=== PATIENT | female | born 1970 | race Caucasian/White ===

== ENCOUNTER → 2016-11-15 | Outpatient (CLI) | payer BC ==
[~2016-11-15] MED LIST: ASPI81TA28 PO; HYDR25TA5 PO; LISI-725 PO; MTR600X PO; OXYC-57 PO
--- NOTE | 2016-11-16 13:27 | MAMMOGRAPHY REPORT ---
BILATERAL DIGITAL SCREENING MAMMOGRAM TOMOSYNTHESIS WITH CAD: 11/15/2016 CLINICAL HISTORY: Routine screening. Patient has no complaints. TECHNIQUE: Breast tomosynthesis in addition to standard 2D mammography was performed. Current study was also evaluated with a Computer Aided Detection (CAD) system. COMPARISON: Comparison is made to exam dated: 08/10/2010 mammogram - [facility]. BREAST COMPOSITION: There are scattered areas of fibroglandular density in both breasts. FINDINGS: There are regionally distributed calcifications within the left upper outer quadrant that appear increased compared to the prior exam. Additionally, there are clusters of calcifications in t he right upper outer quadrant posteriorly which are not clearly stable compared to the prior exam. R ecommend spot magnification views for further evaluation. The remainder of both breasts are stable compared to prior exams, without suspicious masses, calcific ations, or areas of architectural distortion noted. IMPRESSION: ACR BI-RADS CATEGORY 0: INCOMPLETE EVALUATION: NEED ADDITIONAL IMAGING EVALUATION Bilateral breast calcifications, for which additional imaging evaluation is recommended. The patient will be called to schedule an appointment. Approximately 10% of breast cancers are not detected with mammography. A negative mammographic report should not delay biopsy if a clinically suggestive mass is present. Hannah Huizar M.D. /:11/16/2016 07:23:16 Therapist'S Assistant: Sheridan POSEY(Wilma)(Simon)(NEAL), [facility] letter sent: Addl Imaging 0 BI-RADS Code: ACR BI-RADS Category 0: Incomplete Evaluation: Need Additional Imaging Evaluation
== END | disposition home or self-care (01) ==
LOC: C.MAMM 14:56
PROVIDERS: ATTEND Obstetrics & Gynecology
DX: Z12.31 Encounter for screening mammogram for malignant neoplasm of breast (principal); R92.1 Mammographic calcification found on diagnostic imaging of breast

== ENCOUNTER → 2016-11-23 | Outpatient (CLI) | payer BC ==
--- NOTE | 2016-11-23 13:48 | MAMMOGRAPHY REPORT ---
BILATERAL DIGITAL DIAGNOSTIC MAMMOGRAM: 11/23/2016 CLINICAL HISTORY: Callback from screening mammogram for bilateral calcifications. TECHNIQUE: Spot magnification bilateral cc and ML views were obtained. COMPARISON: Comparison is made to exams dated: 11/15/2016 mammogram and 08/10/2010 mammogram - [facility]. BREAST COMPOSITION: There are scattered areas of fibroglandular density in both breasts. FINDINGS: Spot magnification views of the left breast demonstrate multiple scattered and clustered c alcifications which are predominantly regionally distributed throughout the left upper outer quadrant , increased compared to the prior 2010 exam. The calcifications are punctate and round in morphology . Spot magnification views of the right breast demonstrate small clusters of punctate and round calc ifications within the right upper outer quadrant which are also increased compared to the 2011 exam. The calcifications in the right breast are similar morphologically to the regional left breast calci fications and are felt to be part of the same process. Given the bilateral distribution and given th e punctate/round morphology, the calcifications are probably benign and may represent sclerosing poornima osis or fibrocystic changes. The options of short interval follow-up versus biopsy were discussed wi th the patient, and at this time we will proceed to biopsy of one of the groups of calcifications in the left breast. IMPRESSION: ACR BI-RADS CATEGORY 4A: LOW SUSPICION FOR MALIGNANCY Regionally distributed scattered and clustered punctate/round calcifications throughout the left uppe r outer quadrant, as well as similar-appearing clusters of calcifications in the right upper outer qu adrant. Given the bilateral and regional distribution and given the benign-appearing morphology, the calcifications are likely benign and may represent sclerosing adenosis or fibrocystic changes. Sanches rene, given the interval increase, stereotactic biopsy is recommended for further evaluation. Recomme nd biopsy of one of the dominant clusters in the left breast. A phone call was made to the physician's office to confirm faxed results were received. The patient has been verbally notified of the results. She tentatively scheduled the biopsy before leaving the [facility]. Approximately 10% of breast cancers are not detected with mammography. A negative mammographic report should not delay biopsy if a clinically suggestive mass is present. Hannah Huizar M.D. /:11/23/2016 10:23:58 Sales Account Coordinator: Alena POSEY(Wilma)(Simon), [facility] letter sent: Abnormal 4/5 BI-RADS Code: ACR BI-RADS Category 4A: Low Suspicion For Malignancy
== END | disposition home or self-care (01) ==
LOC: C.MAMM 09:43
PROVIDERS: ATTEND Obstetrics & Gynecology
DX: R92.2 Inconclusive mammogram (principal); R92.1 Mammographic calcification found on diagnostic imaging of breast

== ENCOUNTER → 2016-11-30 | Outpatient (CLI) | payer BC ==
--- NOTE | 2016-11-30 13:06 | Discharge Instructions ---
Discharge Instructions Procedure Procedure Date: Nov 30, 2016. Reason for visit: Left Calcifications. Discharge Discharge Date: Nov 30, 2016. Discharge Diagnosis: status post breast biopsy Instructions Activity Recommendations: Additional Limitations (see below) Return to School/Work: no limitations Recommended Home Diet: No Limitations Provider Instructions: ACTIVITY RECOMMENDATIONS: * No lifting, pushing, pulling or exercising the affected side for three days. RETURN TO SCHOOL/WORK: * You may return to work/school after the procedure, but do not perform any strenuous activities for 24 to 48 hours. MEDICATIONS: * Tylenol (two 325 mg) every four to six hours if needed for mild pain (if not allergic to Tylenol). DIET: * Resume previous diet. SPECIAL CARE INSTRUCTIONS: * Keep biopsy site dry for 24 hours. May shower after 24 hours, but do not soak (bathe) incision. * May remove Tegaderm (plastic patch) tomorrow AFTER showering. * Leave the steri-strips on for one week. Allow the steri-strips to fall off by themselves. If not off after one week, you may remove them. You may place a Bandaid crosswise over the strips, if desired. * Apply ice 10 minutes on and 10 minutes off as needed. * Wear a bra at bedtime to sleep more comfortably for 2-3 days. * Your referring physician should have the results after approximately 5 to 7 business days. * Call for unusual bleeding, fever, drainage, etc or if you have any questions call during normal business hours or after hours call Dr Huizar, . FOLLOW UP VISIT: Follow-up with Referring Physician as scheduled. Allergies Coded Allergies: Penicillins (Verified Allergy, Unknown, RASH, 09/03/14) Britt Biswas Recommendations: Call your doctor if: * Temperature above 101 degrees * Pain not relieved by pain medicine ordered * There is increased drainage or redness from any incision * You have any unanswered questions or concerns. Your Doctors Instructions noted above were prepared by provider Hannah Huizar. Patient Signature Section: Patient Instructions Signature Page Neha Mendoza Patient (or Guardian) Signature/Date: I have read and understand the instructions given to me by my caregivers. Caregiver/RN/Doctor Signature/Date: The above-named patient and/or guardian has received patient instructions on this date. + Original Patient Signature Page (only) stays with chart. Please make copy for patient.
--- NOTE | 2016-11-30 15:22 | MAMMOGRAPHY REPORT ---
THIS REPORT HAS BEEN AMENDED. STEREOTACTIC GUIDED BIOPSY LEFT BREAST: 11/30/2016 CLINICAL HISTORY: Regional calcifications in the left upper outer quadrant. PATIENT CONSENT: The procedure, risks, benefits, and alternatives of stereotactic biopsy with clip pl acement were discussed with the patient, and verbal and written consent was obtained. A timeout was performed immediately prior to the procedure. PROCEDURE DESCRIPTION: With stereotactic guidance, aseptic technique, and lidocaine as a local anesth etic (1% lidocaine to anesthetize the skin and 1% lidocaine with epinephrine to anesthetize the deepe r tissues), the calcifications of concern in the left upper outer quadrant were sampled multiple time s with a 9-gauge vacuum-assisted biopsy needle ([employer]). The path of approach was lateral. The specimen radiograph demonstrates calcifications to be present in the samples. A metallic marker cli p was placed at the biopsy site. This was confirmed on postprocedure mammograms. Direct pressure wa s applied at the biopsy site and hemostasis was readily achieved. The patient tolerated the procedur e without complication. She was given wound care instructions. COMPARISON: Comparison is made to exams dated: 11/23/2016 mammogram, 11/15/2016 mammogram, 08/10/2010 m ammogram, and 07/11/1999 mammogram - [facility]. IMPRESSION: STEREOTACTIC GUIDED BIOPSY Stereotactic guided biopsy of indeterminate calcifications in the left upper outer quadrant, with cli p placement. The patient will receive pathology results from her referring provider. Hannah Huizar M.D. ah/:11/30/2016 13:11:41 Corporate Travel Expert: Elysia Dunlap, [facility] AMENDMENT: 12/06/2016 Hannah Huizar M.D. Pathology results from left breast stereotactic biopsy were reviewed on 12/06/2016. The pathology show s lobular carcinoma in situ involving sclerosing adenosis; the pathology is concordant with the imagi ng findings. Given that the calcifications are extensive and seen throughout the left upper outer qu adrant, recommend additional stereotactic biopsy of calcifications most distant from the biopsy site to determine the extent of disease. Also recommend stereotactic biopsy of similar appearing right br east calcifications. The additional recommendations were discussed with Dr. Carter's nurse on 12/06/2016.
--- NOTE | 2016-11-30 15:23 | MAMMOGRAPHY REPORT ---
UNILATERAL LEFT DIGITAL DIAGNOSTIC MAMMOGRAM: 11/30/2016 CLINICAL HISTORY: Status post left breast stereotactic biopsy. TECHNIQUE: Postprocedural Left CC and LM views were obtained. COMPARISON: Comparison is made to exams dated: 11/23/2016 mammogram, 11/15/2016 mammogram, and 08/11/19 11 mammogram - [facility]. BREAST COMPOSITION: There are scattered areas of fibroglandular density in the left breast. FINDINGS: A new dumbbell-shaped biopsy marker clip is seen at the site of the biopsied calcification s in the left upper outer quadrant. No significant postbiopsy hematoma is seen. IMPRESSION: POST PROCEDURE IMAGING FOR MARKER PLACEMENT New biopsy marker clip status post left breast stereotactic biopsy. Pathology results are pending. Approximately 10% of breast cancers are not detected with mammography. A negative mammographic report should not delay biopsy if a clinically suggestive mass is present. Hannah Huizar M.D. ah/:11/30/2016 13:27:57 Habilitation Worker: Elysia Dunlap, [facility] BI-RADS Code: Post Procedure Imaging For Marker Placement
== END | disposition home or self-care (01) ==
LOC: C.MAMM 12:19
PROVIDERS: ATTEND Obstetrics & Gynecology
DX: D05.02 Lobular carcinoma in situ of left breast (principal); R92.0 Mammographic microcalcification found on diagnostic imaging of breast; N60.22 Fibroadenosis of left breast

== ENCOUNTER → 2016-12-21 | Outpatient (CLI) | payer BC ==
--- NOTE | 2016-12-21 09:45 | Discharge Instructions ---
Discharge Instructions Procedure Procedure Date: Dec 21, 2016. Reason for visit: Bilateral Calcifications. Discharge Discharge Date: Dec 21, 2016. Discharge Diagnosis: post right and left breast stereotactic guided biopsies Instructions Activity Recommendations: Additional Limitations (see below) Return to School/Work: no limitations Recommended Home Diet: No Limitations Provider Instructions: ACTIVITY RECOMMENDATIONS: * No lifting, pushing, pulling or exercising the affected side for three days. RETURN TO SCHOOL/WORK: * You may return to work/school after the procedure, but do not perform any strenuous activities for 24 to 48 hours. MEDICATIONS: * Tylenol (two 325 mg) every four to six hours if needed for mild pain (if not allergic to Tylenol). DIET: * Resume previous diet. SPECIAL CARE INSTRUCTIONS: * Keep biopsy site dry for 24 hours. May shower after 24 hours, but do not soak (bathe) incision. * May remove Tegaderm (plastic patch) tomorrow AFTER showering. * Leave the steri-strips on for one week. Allow the steri-strips to fall off by themselves. If not off after one week, you may remove them. You may place a Bandaid crosswise over the strips, if desired. * Apply ice 10 minutes on and 10 minutes off as needed. * Wear a bra at bedtime to sleep more comfortably for 2-3 days. * Your referring physician should have the results after approximately 5 to 7 business days. * Call for unusual bleeding, fever, drainage, etc or if you have any questions call [phone] during normal business hours or after hours call Dr Tan, . FOLLOW UP VISIT: Follow-up with Referring Physician as scheduled. Allergies Coded Allergies: Penicillins (Verified Allergy, Unknown, RASH, 09/03/14) Britt Biswas Recommendations: Call your doctor if: * Temperature above 101 degrees * Pain not relieved by pain medicine ordered * There is increased drainage or redness from any incision * You have any unanswered questions or concerns. Your Doctors Instructions noted above were prepared by provider Lary Tan. Patient Signature Section: Patient Instructions Signature Page Neha Reji Patient (or Guardian) Signature/Date: I have read and understand the instructions given to me by my caregivers. Caregiver/RN/Doctor Signature/Date: The above-named patient and/or guardian has received patient instructions on this date. + Original Patient Signature Page (only) stays with chart. Please make copy for patient.
--- NOTE | 2016-12-21 12:18 | MAMMOGRAPHY REPORT ---
STEREOTACTIC GUIDED BIOPSY: 12/21/2016 CLINICAL HISTORY: Clustered microcalcifications in the upper outer posterior right breast and upper o uter posterior left breast. Patient presents for bilateral stereotactic biopsies. She has a history of recent biopsy-proven atypia in the 3:00 middle one third of the left breast. Please refer to the report from left breast stereotactic guided biopsy performed at the same time for full detail. IMPRESSION: STEREOTACTIC GUIDED BIOPSY Please refer to the report from left breast stereotactic guided biopsy performed at the same time for full detail. Lary Tan M.D. ay/:12/21/2016 09:47:45 Turning Sander Tender: Elysia POSEY(Wilma)(M), [facility]
--- NOTE | 2016-12-21 12:18 | MAMMOGRAPHY REPORT ---
THIS REPORT HAS BEEN AMENDED. STEREOTACTIC GUIDED BIOPSY LEFT BREAST: 12/21/2016 CLINICAL HISTORY: 46-year-old woman with recent proven atypia in the left breast. Patient presents f or stereotactic biopsy of another distal clustered microcalcifications on the left, and also a cluste r microcalcifications in the right breast. COMPARISON: Comparison is made to exams dated: 12/21/2016 mammogram, 11/30/2016 mammogram, 11/30/2016 s tereotactic biopsy, 11/23/2016 mammogram, 11/15/2016 mammogram, and 08/10/2010 mammogram - [facility]. PATIENT CONSENT: After explaining the risks, benefits and alternatives of the procedure to the patien t, informed consent was obtained both verbally and in writing. Specific risks include: Bleeding, inf ection, puncture of adjacent structure, pain, nontarget biopsy, sampling error, metal allergy and med ication reaction. A time out was performed in both breasts were agreed as the site of biopsy. PROCEDURE DESCRIPTION: First the left breast stereotactic guided biopsy was performed. The patient w as placed prone on the stereotactic biopsy table and the breast was placed in CC from above compressi on. A fire extinguisher installer image was obtained that demonstrated the clustered microcalcifications in question. They are amenable to sterotactic biopsy. Then +15 and -15 stereo pair images were obtained. The calcifi cations were targeted utilizing the coordinates obtained by the computer. The skin was prepped with Betadine. 1% Lidocaine with and without epinipherine was administered as local anesthesia. A small sk in incision was made. Through the incision, the needle was inserted to the depth determined by the c omputer. 9 samples were obtained using a [employer] 9-gauge vacuum-assisted biopsy device. The speci men radiograph demonstrated the cluster of outside sales representative insurance microcalcifications, therefore, a T-shaped metallic marker was placed at the biopsy site. There was no immediate complication. Hemostasis was ac hieved after several minutes of manual compression. The samples were sent expedited to pathology in two appropriately labeled containers, "with calcifications" and "without calcifications". All of the samples were obtained from the same single biopsy site. Then, the right breast stereotactic guided biopsy was performed. The patient was placed prone on the stereotactic biopsy table and the right breast was placed in CC from above compression. A fire extinguisher installer imag e was obtained that demonstrated the clustered microcalcifications in question. They are amenable to sterotactic biopsy. Then +15 and -15 stereo pair images were obtained. The calcifications were tar geted utilizing the coordinates obtained by the computer. The skin was prepped with Betadine. 1% Lid ocaine with and without epinipherine was administered as local anesthesia. A small skin incision was made. Through the incision, the needle was inserted to the depth determined by the computer. 6 sampl es were obtained using a [employer] 9-gauge vacuum-assisted biopsy device. The specimen radiograph d emonstrated the cluster of outside sales representative insurance microcalcifications, therefore, a T-shaped metallic marker was placed at the biopsy site. There was no immediate complication. Hemostasis was achieved after sev eral minutes of manual compression. The samples were sent expedited to pathology in two appropriatel y labeled containers, "with calcifications" and "without calcifications". All of the samples were obt ained from the same single biopsy site. Postprocedure CC and ML views of both breasts were obtained. In the left breast, and new tissue meta llic biopsy marker is identified in the upper outer posterior breast. Based on the CC projection thi s biopsy marker clip is located 6.5 cm distal to the first biopsy marker clip, dumbbell in shape, loc ated in the 3:00 middle one third of the left breast. In the right breast upper outer quadrant posteriorly, a new dumbbell shaped metallic biopsy marker is seen, with minimal post biopsy hematoma. IMPRESSION: STEREOTACTIC GUIDED BIOPSY Status post bilateral breast stereotactic guided biopsies. The biopsy performed in the left upper ou ter quadrant is located at least 6.5 cm distal to the first biopsy, which represented an area of atyp ia. The patient will receive notification of the biopsy results from her referring physician. Lary Tan M.D. ay/:12/21/2016 10:13:31 Head Chopper: Elysia Dunlap, [facility] AMENDMENT: 01/02/2017 Lary Tan M.D. Pathology results from the stereotactic guided biopsy of another clustered microcalcifications more p osteriorly in the left upper outer quadrant yielded lobular neoplasia, favor lobular carcinoma in sit u. Associated microcalcification present. Pathology results from the stereotactic guided biopsy of clustered microcalcifications in the upper o uter posterior right breast yielded lobular neoplasia, favor lobular carcinoma in situ. Associated m icrocalcifications present. The pathology results from the bilateral breast biopsies are concordant with the imaging appearance. Given the finding of LCIS, surgical consultation for surgical excision is recommended. It should be noted that the patient has other similar appearing microcalcifications in the right breast approxima te 9:00 posterior axis, that are located 8 cm inferior to the biopsy marker clip from the biopsy prov en LCIS. Within the left breast, based on the CC projection, the biopsy marker clips are located at least 6.5 cm away from each other and the outside sales representative insurance microcalcifications yielding LCIS and nearly the entire upper outer quadrant, approximately 10 cm in AP by 8 cm in transverse dimension. These f indings are concerning for multiple areas of atypia in both breasts, and also concerning for an entir e quadrant of atypia in the left upper outer breast.
--- NOTE | 2016-12-21 12:18 | MAMMOGRAPHY REPORT ---
BILATERAL DIGITAL DIAGNOSTIC MAMMOGRAM: 12/21/2016 CLINICAL HISTORY: Status post bilateral breast stereotactic guided biopsies of clustered microcalcifi cations in each upper outer quadrant posteriorly. Please refer to the report from left breast stereotactic guided biopsy performed at the same time for full detail. IMPRESSION: POST PROCEDURE IMAGING FOR MARKER PLACEMENT Please refer to the report from left breast stereotactic guided biopsy performed at the same time for full detail. Approximately 10% of breast cancers are not detected with mammography. A negative mammographic report should not delay biopsy if a clinically suggestive mass is present. Lary Tan M.D. ay/:12/21/2016 09:46:47 Black Off Worker: Elysia POSEY(R)(M), [facility] BI-RADS Code: Post Procedure Imaging For Marker Placement
== END | disposition home or self-care (01) ==
LOC: C.MAMM 08:23
PROVIDERS: ATTEND Obstetrics & Gynecology
DX: R92.0 Mammographic microcalcification found on diagnostic imaging of breast (principal)